=== PATIENT | male | born 1995 ===

== ENCOUNTER 2016-03-13 23:30 | Emergency (ER) | payer SELFPAY ==
[2016-03-14] MEDS ORDERED: KETOROLAC TROMETHAMINE 30 MG/ML SOL IV ONE
[2016-03-14] MEDS ORDERED: SOLUMEDROL 125 MG/2 ML 125 MG/2 ML PDS IV ONE
[2016-03-14] MEDS: SODIUM CHLORIDE 0.9% FLUSH 10 ML SOL IV PRN ×2 (00:10→00:17)
[2016-03-14] MEDS ORDERED: KETOROLAC TROMETHAMINE 30 MG/ML SOL ONE (00:11)
[2016-03-14] MEDS ORDERED: SOLUMEDROL 125 MG/2 ML 125 MG/2 ML PDS ONE (00:11)
[2016-03-14 00:14] VITALS: RESP 16; TEMP 98.6
[2016-03-14] MEDS: IBUPROFEN 600 MG TAB PO ONE ×2 (01:12)
[2016-03-14] MEDS ORDERED: IBUPROFEN 600 MG TAB ONE ×2 (01:12→01:22)
[2016-03-14] MEDS ORDERED: IBUPROFEN 600 MG TAB PO PRN (01:21)
[2016-03-14 02:02] VITALS: BP 134/80; PULSE 100; O2SAT 92
== END 2016-03-14 01:50 | disposition home or self-care (01) | DRG 556 ==
LOC: ED 23:30
DX: M25.571 Pain in right ankle and joints of right foot (principal)
CPT/HCPCS: 96374; 96375; 99283; 99284; J1885; J2930